=== PATIENT | female | born 1980 | race Caucasian/White ===

== ENCOUNTER 2016-06-01 19:37 | Inpatient (IN) | payer BC ==
[~2016-06-01] VITALS: Ht 170.2 cm; Wt 65.0 kg
[2016-06-01] MEDS ORDERED: D5%-LACTATED RINGERS 1,000 ML IV SCH (19:51)
[2016-06-01] MEDS ORDERED: NEWBORN KIT ONE (19:51)
[2016-06-01] MEDS ORDERED: LACTATED RINGERS 1,000 ML IV SCH ×2 (19:51→21:08)
[2016-06-01] MEDS ORDERED: OXYTOCIN 30U/ 0.9% NaCL 500ML 500 ML IV ONE (19:51)
[2016-06-01] MEDS ORDERED: ONDANSETRON 2MG/ML, 2ML IVPush PRN ×2 (20:00→21:30)
[2016-06-01] MEDS ORDERED: FENTANYL PF 100 MCG/2ML IV PRN (20:00)
[2016-06-01 20:04] VITALS: BP 121/69
[2016-06-01] MEDS ORDERED: OXYTOCIN 30U/ 0.9% NaCL 500ML 500 ML ONE (20:06)
[2016-06-01] MEDS ORDERED: MISOPROSTOL 200 MCG TABLET ONE (20:06)
[2016-06-01 20:17] LABS: HEMOGLOBIN 12.8 g/dL (11.7-16.4)
[2016-06-01] MEDS: FENTANYL PF 100 MCG/2ML IVPush PRN (20:20)
[2016-06-01] MEDS ORDERED: FENTANYL PF 100 MCG/2ML ONE (20:21)
[2016-06-01] MEDS: PLEASE ENTER HEIGHT AND WEIGHT MC SCH (20:30)
[2016-06-01] MEDS ORDERED: LIDOCAINE/PF 1.5%-EPI 1:200K, 30ML ONE (20:30)
[2016-06-01] MEDS: PLEASE ENTER ALLERGIES MC SCH ×2 (20:30)
[2016-06-01] MEDS ORDERED: FENTANYL/BUPIV./NS/PF 250 ML EPIDCONT ONE (20:30)
[2016-06-01] MEDS ORDERED: FENTANYL/BUPIV./NS/PF 250 ML EPIDCONT SCH (21:08)
[2016-06-01] MEDS ORDERED: NALOXONE 0.4 MG/ML, 1ML IVPush PRN (21:30)
[2016-06-01] MEDS ORDERED: LACTATED RINGERS 1,000 ML IVBOLUS PRN (21:30)
[2016-06-01 23:45] VITALS: BP 101/61
[2016-06-02] MEDS: OXYTOCIN 30U/ 0.9% NaCL 500ML 500 ML IV SCH ×2 (00:59→01:50)
[2016-06-02] MEDS ORDERED: DIPH,PERTUSS(ACELL),TET VAC/PF NC IM-VACC PRN (01:00)
[2016-06-02] MEDS: PLEASE ENTER HEIGHT AND WEIGHT MC SCH ×3 (01:47→06:13)
[2016-06-02] MEDS: PLEASE ENTER ALLERGIES MC SCH ×4 (01:48→04:23)
[2016-06-02] MEDS: FENTANYL PF 100 MCG/2ML IVPush PRN ×2 (01:49→01:51)
[2016-06-02 04:15] VITALS: BP 113/71
[2016-06-02] MEDS ORDERED: OXYcodone/APAP 5/325MG TABLET ONE (04:15)
[2016-06-02] MEDS: OXYcodone/APAP 5/325MG TABLET PO PRN ×2 (04:25→16:17)
[2016-06-02] MEDS: IBUPROFEN 600 MG TABLET PO PRN ×2 (04:25→16:17)
[2016-06-02 06:24] LABS: HEMOGLOBIN 12.3 g/dL (11.7-16.4)
[2016-06-02 08:28] VITALS: BP 93/58
[2016-06-02] MEDS: PRENATAL VIT/IRON/FA 1 EACH TABLET PO SCH (08:35)
[2016-06-02] MEDS: DOCUSATE 100 MG CAPSULE PO PRN (08:35)
[2016-06-02 12:05] VITALS: BP 89/56
[2016-06-02 16:30] VITALS: BP 101/56
[2016-06-02 19:40] VITALS: BP 96/57
[2016-06-03] MEDS: OXYcodone/APAP 5/325MG TABLET PO PRN ×2 (00:46→09:33)
[2016-06-03] MEDS: IBUPROFEN 600 MG TABLET PO PRN ×2 (00:46→09:31)
[2016-06-03 07:28] VITALS: BP 104/72
[2016-06-03] MEDS: PRENATAL VIT/IRON/FA 1 EACH TABLET PO SCH (09:31)
[2016-06-03] MEDS: DOCUSATE 100 MG CAPSULE PO PRN (09:31)
[2016-06-03] MEDS ORDERED: IBUP-1222 PO (12:35)
[2016-06-03] MEDS ORDERED: OXYC-302 PO (12:36)
[2016-06-03] MEDS ORDERED: CEPH-368 PO (12:41)
== END 2016-06-03 15:20 | disposition home or self-care (01) | DRG 775 ==
LOC: LDOP 19:37 → LDIP 19:50 → 2NW 23:27
PROVIDERS: ADMIT Obstetrics & Gynecology Maternal & Fetal Medicine; ATTEND Obstetrics & Gynecology Maternal & Fetal Medicine
PROC: 10E0XZZ Delivery of Products of Conception, External Approach (ICD-10-PCS; principal; 2016-06-02)
PROC: 10907ZC Drainage of Amniotic Fluid, Therapeutic from Products of Conception, Via Natural or Artificial Opening (ICD-10-PCS; 2016-06-02)
PROC: 3E0R3CZ (ICD-10-PCS; 2016-06-02)
PROC: 00HU33Z Insertion of Infusion Device into Spinal Canal, Percutaneous Approach (ICD-10-PCS; 2016-06-02)
DX: O87.4 Varicose veins of lower extremity in the puerperium (principal); O87.0 Superficial thrombophlebitis in the puerperium; Z37.0 Single live birth; Z3A.40 40 weeks gestation of pregnancy
CPT/HCPCS: 36415; 85025; 86850; 86900; J3010; J2590; J7120